=== PATIENT | female | born 2000 | race Two or more races ===

== ENCOUNTER 2023-03-30 15:30 | Outpatient (CLI) | payer OTHER | END 2023-03-30 17:11 | disposition home or self-care (01) | LOC: PRENATAL 15:30 | PROVIDERS: ATTEND Obstetrics & Gynecology Maternal & Fetal Medicine | DX: O35.9XX0 Maternal care for (suspected) fetal abnormality and damage, unspecified, not applicable or unspecified (principal); O35.3XX0 Maternal care for (suspected) damage to fetus from viral disease in mother, not applicable or unspecified; O44.00 Complete placenta previa NOS or without hemorrhage, unspecified trimester; Z3A.19 19 weeks gestation of pregnancy ==

== ENCOUNTER 2023-06-05 15:33 | Outpatient (CLI) | payer OTHER | END 2023-06-05 15:38 | disposition home or self-care (01) | LOC: PRENATAL 15:33 | PROVIDERS: ATTEND Obstetrics & Gynecology Maternal & Fetal Medicine | DX: O26.849 Uterine size-date discrepancy, unspecified trimester (principal); O44.00 Complete placenta previa NOS or without hemorrhage, unspecified trimester; Z3A.29 29 weeks gestation of pregnancy ==

== ENCOUNTER 2023-07-09 16:01 | Outpatient (CLI) | payer OTHER | END 2023-07-09 16:02 | disposition home or self-care (01) | LOC: PRENATAL 16:01 | PROVIDERS: ATTEND Obstetrics & Gynecology Maternal & Fetal Medicine | DX: O26.849 Uterine size-date discrepancy, unspecified trimester (principal); O36.8199 Decreased fetal movements, unspecified trimester, other fetus; Z3A.34 34 weeks gestation of pregnancy ==

== ENCOUNTER 2023-07-29 17:26 | Outpatient (CLI) | payer OTHER ==
[2023-07-29] MEDS ORDERED: PRENATAL TABLE1 EAC1 PO (17:35)
[2023-07-29 17:52] LABS: PH,URINE 6.5 (5.0-8.0); URINE APPEARANCE Clear; URINE BILIRRUBIN Negative (NEGATIVE); URINE BLOOD Negative; URINE COLOR Yellow; URINE GLUCOSE Negative (NEGATIVE); URINE LEUKOCYTE Trace; URINE NITRATE Negative; URINE PROTEIN Negative (NEGATIVE)
[2023-07-29 17:52] LABS: HEMATOCRIT 33.1 % (36.0-45.00); HEMOGLOBIN 11.4 g/dL (12.0-15.00); MEAN CELL VOLUME 92.4 fL (80.00-100.00); MEAN CORPUSCULAR HEMOGLOBIN 31.8 pg (27.00-32.0); MEAN CORPUSCULAR HGB CONC 34.4 g/dl (32.0-36.0); PLATELET COUNT 155 K/uL (150-450); RED BLOOD COUNT 3.58 M/uL (4.00-6.00); RED CELL DISTRIBUTION WIDTH 13.4 % (11.5-14.5)
[2023-07-29 17:59] LABS: URINE BACTERIA 307.4 uL (0.0-1933); URINE EPITHELIAL CELLS 28.1 uL (0.0-38.8); URINE RBC 5.6 uL (0.0-20.8); URINE WBC 36.4 uL (0.0-23.2)
[2023-07-29 18:08] LABS: INR 0.95; PARTIAL THROMBOPLASTIN TIME 31.6 SECONDS (22.0-34.0)
[2023-07-29 18:19] LABS: ALBUMIN 2.7 gm/dL (3.4-5.0); BILIRUBIN TOTAL 0.43 mg/dL (0.3-1.2); CREATININE SERUM 0.45 mg/dL (0.55-1.02); GFR 172.66; POTASSIUM 3.91 mEq/L (3.5-5.1); TOTAL PROTEIN 6.7 gm/dL (6.4-8.2)
[2023-07-29 18:23] LABS: URINE TRICHOMONAS FEW; URINE YEAST FEW /hpf
== END 2023-07-30 10:07 | disposition home or self-care (01) ==
LOC: OBS/DEL 17:26
PROVIDERS: Specialist; ATTEND Obstetrics & Gynecology
DX: O23.43 Unspecified infection of urinary tract in pregnancy, third trimester (principal); N39.0 Urinary tract infection, site not specified; Z3A.37 37 weeks gestation of pregnancy

== ENCOUNTER 2023-07-31 15:38 | Outpatient (CLI) | payer OTHER ==
[~2023-07-31 15:38] MED LIST: PRENATAL TABLE1 EAC1 PO
== END 2023-07-31 15:39 | disposition home or self-care (01) ==
LOC: PRENATAL 15:38
PROVIDERS: ATTEND Obstetrics & Gynecology Maternal & Fetal Medicine
DX: O26.849 Uterine size-date discrepancy, unspecified trimester (principal); O36.8199 Decreased fetal movements, unspecified trimester, other fetus; Z3A.37 37 weeks gestation of pregnancy

== ENCOUNTER 2023-08-03 13:00 | Inpatient (IN) | payer OTHER ==
[~2023-08-03] VITALS: Ht 167.6 cm; Wt 76.2 kg
[2023-08-07 08:44] LABS: HEMATOCRIT 33.2 % (36.0-45.00); HEMOGLOBIN 11.4 g/dL (12.0-15.00); MEAN CELL VOLUME 92.7 fL (80.00-100.00); MEAN CORPUSCULAR HEMOGLOBIN 31.9 pg (27.00-32.0); MEAN CORPUSCULAR HGB CONC 34.4 g/dl (32.0-36.0); PLATELET COUNT 172 K/uL (150-450); RED BLOOD COUNT 3.58 M/uL (4.00-6.00)
[2023-08-07 09:06] LABS: INR 0.94; PROTHROMBIN TIME 9.9 SECONDS (9.0-11.5)
[2023-08-07 09:25] LABS: URINE APPEARANCE Clear; URINE BILIRRUBIN Negative (NEGATIVE); URINE BLOOD Negative; URINE COLOR Yellow; URINE GLUCOSE Negative (NEGATIVE); URINE LEUKOCYTE Small; URINE NITRATE Negative; URINE PROTEIN Negative (NEGATIVE)
[2023-08-07 09:28] LABS: URINE BACTERIA 408.2 uL (0.0-1933); URINE EPITHELIAL CELLS 24.7 uL (0.0-38.8); URINE RBC 9.3 uL (0.0-20.8); URINE WBC 58.9 uL (0.0-23.2)
[2023-08-07 10:06] LABS: URINE YEAST MODERATE /hpf
[2023-08-07 22:32] LABS: ABG PH 7.228 (7.35-7.45); ABG pCO2 54.8 mmHg (35-45); BASE EXCESS -5.9 mmol/l; BICARBONATE 22.3 mmol/l (23-25); SaO2 16.4 %; o2 21 %
[2023-08-08 07:18] LABS: HEMATOCRIT 33.7 % (36.0-45.00); HEMOGLOBIN 11.4 g/dL (12.0-15.00); MEAN CELL VOLUME 92.5 fL (80.00-100.00); MEAN CORPUSCULAR HEMOGLOBIN 31.2 pg (27.00-32.0); MEAN CORPUSCULAR HGB CONC 33.8 g/dl (32.0-36.0); PLATELET COUNT 167 K/uL (150-450); RED BLOOD COUNT 3.65 M/uL (4.00-6.00); RED CELL DISTRIBUTION WIDTH 13.3 % (11.5-14.5)
== END 2023-08-09 17:49 | disposition home or self-care (01) | DRG 788 ==
LOC: LDR 08-07 06:19 → OB/GYN 08-07 06:19 → O/R 08-07 18:32 → OB/GYN 08-07 19:50
PROVIDERS: ADMIT Obstetrics & Gynecology; ATTEND Obstetrics & Gynecology
PROC: 4A1HXCZ Monitoring of Products of Conception, Cardiac Rate, External Approach (ICD-10-PCS; 2023-08-07)
PROC: 10D00Z1 Extraction of Products of Conception, Low, Open Approach (ICD-10-PCS; principal; 2023-08-07 18:00)
DX: O62.1 Secondary uterine inertia (principal); O69.81X0 Labor and delivery complicated by cord around neck, without compression, not applicable or unspecified; O36.5930 Maternal care for other known or suspected poor fetal growth, third trimester, not applicable or unspecified; Z3A.38 38 weeks gestation of pregnancy; Z37.0 Single live birth; Z20.822 Contact with and (suspected) exposure to COVID-19